=== PATIENT | male | born 1950 | race Caucasian/White ===

== ENCOUNTER 2019-08-19 15:28 | Outpatient (CLI) | payer MEDICARE, BC ==
--- NOTE | 2019-08-19 15:57 | RAD ---
Chest 2 views HISTORY: Bronchospasm. Dyspnea. COMPARISON: None available. FINDINGS: Cardiac silhouette and pulmonary vasculature are unremarkable. Mediastinum is midline. No c onfluent airspace consolidation, pneumothorax, or pleural fluid. Degenerative changes throughout the thoracic spine on the lateral view. IMPRESSION : No active cardiopulmonary abnormalities are demonstrated.
== END 2019-08-19 15:29 | disposition home or self-care (01) ==
LOC: BICRAD 15:28
PROVIDERS: ATTEND Family Medicine
DX: J98.01 Acute bronchospasm (principal)
CPT/HCPCS: 71046

== ENCOUNTER 2021-08-10 10:24 | Emergency (ER) | payer MEDICARE, BC ==
[~2021-08-10 10:24] MED LIST: Sodium Bicarb 50 MEQ/50 ML Abboject 8.4% SYRINGE ONE
[2021-08-10] MEDS ORDERED: Aspirin 300 MG Suppository ONE (10:40)
[2021-08-10] MEDS ORDERED: Lidocaine 1% (PF) 30 ML VIAL ONE (10:42)
[2021-08-10] MEDS ORDERED: Calcium Chloride 1 GM/10 ML Abboject SYRINGE ONE (10:43)
[2021-08-10] MEDS ORDERED: EPINEPHrine 1 MG/10 ML Abboject SYRINGE ONE (10:43)
[2021-08-10] MEDS ORDERED: Aspirin Chewable 81 MG TAB ONE (10:43)
[2021-08-10] MEDS ORDERED: Amiodarone 150 MG/3 ML VIAL ONE (10:43)
[2021-08-10] MEDS ORDERED: Ondansetron PF 4 MG/2 ML Vial ONE (10:48)
[2021-08-10] MEDS ORDERED: Ketamine 50 MG/ML (10ML VIAL) ONE (10:53)
[2021-08-10] MEDS ORDERED: Heparin 10,000 UNITS/ 10 ML VIAL ONE (11:07)
== END 2021-08-10 11:12 | disposition expired ==
LOC: ERS 10:24
DX: I46.9 Cardiac arrest, cause unspecified (principal); I25.2 Old myocardial infarction; R55 Syncope and collapse; I49.01 Ventricular fibrillation; Z79.899 Other long term (current) drug therapy
CPT/HCPCS: 31500; 36416; 92950; 93005; J0171; J0282; J1644; J2001; J2405; J7620